=== PATIENT | female | born 1955 | race Caucasian/White ===

== ENCOUNTER 2019-06-06 05:23 | Inpatient (IN) ==
--- NOTE | 2019-05-31 18:07 | EKG Report ---
Test Performed on : 05/31/2019 5:58:58 PM Test Reason : PAT Blood Pressure : / mmHG Vent. Rate : 076 BPM Atrial Rate : 076 BPM P-R Int : 112 ms QRS Dur : 106 ms QT Int : 378 ms P-R-T Axes : 028 -30 003 degrees QTc Int : 425 ms Sinus rhythm. with marked sinus arrhythmia. Left axis deviation Incomplete right bundle branch block Abnormal ECG When compared with ECG of 17-DEC-2018 21:25, No significant change was found Confirmed by Uzma Ashby MD ([id number]) on 06/01/2019 1:00:20 PM
[2019-05-31 18:25] LABS: URINE SOURCE CLEAN CATCH
[2019-05-31 18:31] LABS: BILIRUBIN URINE NEGATIVE (NEGATIVE); BLOOD URINE NEGATIVE (NEGATIVE); COLOR YELLOW; GLUCOSE URINE NEGATIVE (NEGATIVE); KETONE URINE NEGATIVE (NEGATIVE); LEUKOCYTES URINE NEGATIVE (NEGATIVE); NITRITE URINE NEGATIVE (NEGATIVE); PH URINE 6.5; PROTEIN URINE TRACE mg/dL (NEGATIVE); SP GRAVITY URINE 1.022; TURBIDITY URINE HAZY (CLEAR); UROBILINOGEN URINE NORMAL (NORMAL)
[2019-05-31 18:32] LABS: BASO# 0.01 X1000 (0.0-0.2); BASO% 0.2 % (0.0-0.8); EOS# 0.16 X1000 (0.0-0.7); EOS% 2.6 % (0.0-10.0); HEMATOCRIT 37.6 % (37.0-47.0); HEMOGLOBIN 11.8 g/dL (12.0-16.0); LYMPH# 1.51 X1000 (1.2-3.4); LYMPH% 24.8 % (20.5-51.1); MCH 26.6 PG (27-31); MCHC 31.4 g/dL (33-37); MCV 84.9 FL (81-99); MONO# 0.54 X1000 (0.11-0.59); MONO% 8.9 % (1.7-9.3); MPV 10.2 FL (7.4-10.4); NEUT# 3.86 X1000 (1.4-6.5); NEUT% 63.5 % (42.2-75.2); PLT 366 X1000 (130-400); RBC 4.43 XMIL (4.2-5.4); WBC 6.08 X1000 (4.8-10.8)
[2019-05-31 18:33] LABS: UR EPITHELIAL CELLS <10 /HPF (<10); URINE BACTERIA NEGATIVE /HPF; URINE RBC <10 /HPF (<10); URINE WBC <10 /HPF (<10)
[2019-05-31 18:38] LABS: INR 0.95; PROTIME 12.8 Seconds (11.0-16.0)
[2019-05-31 18:39] LABS: PTT 26.3 Seconds (22.3-41.8)
[2019-05-31 19:00] LABS: HEMOGLOBIN A1C 5.4 % (4.8-6.0)
[2019-05-31 19:01] LABS: AGAP 11; BUN 9 mg/dL (8-22); CHLORIDE 105 mmol/L (98-107); COSMO 283; CREATININE 0.6 mg/dL (0.5-0.9); ESTIMATED GFR > 60; GLUCOSE 118 mg/dL (70-104); POTASSIUM 4.1 mmol/L (3.5-5.1); SODIUM 142 mmol/L (136-145); TCO2 26 mmol/L (25-35)
[2019-06-06] MEDS ORDERED: PEPCID ONE (06:22)
[2019-06-06] MEDS ORDERED: COLACE ONE (06:22)
[2019-06-06] MEDS ORDERED: REGLAN ONE (06:22)
[2019-06-06] MEDS ORDERED: LYRICA ONE (06:22)
[2019-06-06] MEDS ORDERED: LR 1,000 ML ONE (06:23)
[2019-06-06] MEDS ORDERED: KEFZOL 1 GM/D5W 2 GM/100 ML IVPB ONE (06:23)
[2019-06-06] MEDS ORDERED: CELEBREX ONE (06:23)
[2019-06-06] MEDS ORDERED: DIPRIVAN 1% ONE ×3 (06:35→08:16)
[2019-06-06] MEDS ORDERED: MARCAINE 0.25% PF ONE (06:51)
[2019-06-06] MEDS ORDERED: CYKLOKAPRON 1,000 MG/NS 1,000 MG/100 ML IVPB ONE (06:51)
[2019-06-06] MEDS ORDERED: TORADOL ONE (06:51)
[2019-06-06] MEDS ORDERED: DURAMORPH ONE (06:51)
[2019-06-06] MEDS ORDERED: SODIUM CHLORIDE 0.9% ONE (06:51)
[2019-06-06] MEDS ORDERED: EXPAREL 1.3% ONE (06:52)
[2019-06-06] MEDS ORDERED: NEOSPORIN G.U. IRRIGANT ONE (06:52)
[2019-06-06] MEDS ORDERED: FENTANYL ONE (07:20)
[2019-06-06] MEDS ORDERED: DECADRON ONE (07:52)
[2019-06-06] MEDS ORDERED: NEO-SYNEPHRINE ONE ×3 (07:52→08:11)
[2019-06-06] MEDS ORDERED: OFIRMEV 1000 MG/ISOTONIC SOLN 1,000 MG/100 ML BOTTLE ONE (07:52)
[2019-06-06] MEDS ORDERED: ZOFRAN ONE (07:52)
[2019-06-06] MEDS ORDERED: SODIUM CHLORIDE 0.9% 20 ML ONE (07:54)
[2019-06-06] MEDS ORDERED: ALBUMIN 25% ONE (08:43)
[2019-06-06 08:45] LABS: URINE SOURCE CATH
[2019-06-06 08:52] LABS: BILIRUBIN URINE NEGATIVE (NEGATIVE); BLOOD URINE NEGATIVE (NEGATIVE); COLOR YELLOW; GLUCOSE URINE NEGATIVE (NEGATIVE); KETONE URINE NEGATIVE (NEGATIVE); LEUKOCYTES URINE NEGATIVE (NEGATIVE); NITRITE URINE NEGATIVE (NEGATIVE); PROTEIN URINE NEGATIVE (NEGATIVE); SP GRAVITY URINE 1.013; TURBIDITY URINE HAZY (CLEAR); UR EPITHELIAL CELLS <10 /HPF (<10); URINE BACTERIA NEGATIVE /HPF; URINE RBC <10 /HPF (<10); URINE WBC <10 /HPF (<10); UROBILINOGEN URINE NORMAL (NORMAL)
[2019-06-06] MEDS ORDERED: NS 1,000 ML ONE (09:19)
[2019-06-06] MEDS ORDERED: DEMEROL ONE (09:26)
--- NOTE | 2019-06-06 09:29 | OPERATIVE NOTE ---
PROCEDURE DATE: 06/06/2019 PREOPERATIVE DIAGNOSIS: Degenerative joint disease, left hip. POSTOPERATIVE DIAGNOSIS: Degenerative joint disease, left hip. PROCEDURE: Left anterior hip replacement. SURGEON: Angela Yee MD. FIELD TRAINING AGENT: DIONISIO Allen. Mr. Crow was necessary for proper retraction, manipulation, and exposure of the leg during the case. ANESTHESIA: Spinal. COMPLICATION: None. PROCEDURE IN DETAIL: This 63-year-old female presents for a left anterior hip replacement. Risks, benefits, and no guarantees were discussed and she is willing to proceed. She was taken to the operating room and satisfactory anesthesia obtained. The left hip was prepped and draped in usual sterile fashion. A time-out was taken to confirm operative site, procedure, and patient. After prep and drape, an anterior approach to the left hip was undertaken with an incision starting 1 cm distal and lateral to the anterosuperior iliac spine. This was carried 10 cm. Dissection was carried down through the subcutaneous fat to the fascia of the tensor fascia jordan. This was split in line with the incision and blunt dissection along the inner membrane of the tensor undertaken down to the anterior hip capsule. Cobra retractors were placed over the superior and inferior aspect of the femoral neck and a capsulotomy incision made. The C-arm was used to tim the AP pelvis prior to osteotomy of the femoral neck for leg length determination. Slight shortening of the left leg was noted preoperatively. Femoral neck osteotomy was made roughly 8 mm above the lesser trochanter and the femoral head removed. A small Cobra retractor was placed carefully directly on the anterior acetabular bone to protect the femoral nerve and neurovascular structures. This was placed under direct palpation on to bone to avoid any injury. Sequential reaming of the acetabulum was undertaken up to a 51 reamer. A [employer] coated 52 outer diameter cup was then impacted in the acetabulum in roughly 45 degrees of abduction and 15 degrees of anteversion. Secure press-fit fixation was achieved. The 25 length screw was placed in the cup for additional security, followed by a 36 mm inner diameter 0 degree polyethylene bearing. The bearing liner interface and liner bone interface was checked and noted to be stable after impaction. Next, traction was released off the leg and the hip extended and externally rotated to facilitate broaching of the proximal femur. Using the [employer] broach system, the proximal femur was broached up to a size 4 stem. A high offset collar with a 1.5 neck length revealed good denominational of leg length and stability. The trial stem was removed and a high offset size 4 collared femoral stem impacted into the proximal femur with secure axial and rotational stability. A 36 mm ceramic head with a 1.5 neck length was impacted onto this and the hip reduced. C-arm was used to verify accurate component position as well as fixation. The leg was extended to the floor and externally rotated 80 degrees without any anterior instability. The hip was flexed and internally rotated with no posterior instability. The joint capsule was injected with Exparel for pain management. A Hemovac drain was placed. The arthrotomy and implant was thoroughly irrigated with irrigant. It was then closed over the drain with a running V-Loc suture in the fascia, 2-0 Vicryl in the subcutaneous and skin vinod on the skin edges. Sterile dressings completed the closure, and the patient was recovered from anesthesia and transferred to the recovery room in stable condition. No intraoperative complications were noted. Instrument count and sponge count was correct at the time of closure. cc: Mark Yee MD [facility]
[2019-06-06] MEDS ORDERED: MORPHINE IV PRN ×2 (10:30)
[2019-06-06] MEDS ORDERED: OXY IR PO PRN (10:30)
[2019-06-06] MEDS ORDERED: ZOFRAN IV PRN (10:30)
[2019-06-06] MEDS ORDERED: ZOFRAN ODT PO PRN (10:30)
[2019-06-06] MEDS: ULTRAM PO SCH ×3 (11:04→22:13)
--- NOTE | 2019-06-06 12:11 | ORTHOPAEDICS PROGRESS NOTE ---
DATE: 06/06/2019 Ms. Walker is seen status post left hip replacement. At the present time, she is stable. She is awake and alert without any discomfort. Bandage is clean and dry. There are no motor or sensory deficits distally, with good flexion and extension of the ankle, as well as good quadriceps and femoral nerve function. She is stable currently. We will plan on mobilizing her and discharging home when she is mobilizing with home therapy or inpatient rehab. cc: Mark Yee MD
[2019-06-06] MEDS ORDERED: CYKLOKAPRON 1,000 MG in NS 100 ML IV ONE (13:45)
[2019-06-06] MEDS: OXY IR PO PRN ×3 (14:51→22:18)
[2019-06-06] MEDS: KEFZOL 1 GM/D5W 1 GM/50 ML IVPB IV SCH ×2 (15:25→22:15)
[2019-06-06] MEDS: TYLENOL PO SCH ×2 (15:29→22:13)
[2019-06-06] MEDS: NS 1,000 ML IV SCH (19:20)
[2019-06-06] MEDS: CELEBREX PO SCH (22:13)
[2019-06-06] MEDS: COLACE PO SCH (22:13)
[2019-06-07] MEDS: MORPHINE IV PRN (03:19)
[2019-06-07 05:56] LABS: HEMATOCRIT 24.5 % (37.0-47.0); HEMOGLOBIN 7.4 g/dL (12.0-16.0)
[2019-06-07 06:04] LABS: AGAP 5; BUN 9 mg/dL (8-22); CALCIUM 8.7 mg/dL (8.8-10.2); CHLORIDE 104 mmol/L (98-107); COSMO 283; CREATININE 0.5 mg/dL (0.5-0.9); ESTIMATED GFR > 60; GLUCOSE 162 mg/dL (70-104); SODIUM 141 mmol/L (136-145); TCO2 32 mmol/L (25-35)
[2019-06-07] MEDS: TYLENOL PO SCH ×3 (07:44→22:05)
[2019-06-07] MEDS: ULTRAM PO SCH ×3 (07:44→22:03)
[2019-06-07] MEDS ORDERED: DUONEB (A & A) INH PRN ×2 (08:10→08:56)
--- NOTE | 2019-06-07 08:13 | ORTHOPAEDICS PROGRESS NOTE ---
DATE: 06/07/2019 SUBJECTIVE: Ms. Walker is seen status post hip replacement. At the present time, she is afebrile with stable vital signs. She has had some difficulty with her COPD and a flare-up of this. PLAN: We have asked the Hospitalist to see her for medical management. She is a currently discharge issue since she only has Medicaid and is not qualified for home therapy or inpatient rehab. We will need to continue hospitalization today and get her COPD under control and consider discharge for outpatient therapy possibly on Wednesday. cc: MD Brian Wood MD
--- NOTE | 2019-06-07 09:18 | CONSULTATION ---
DATE OF CONSULTATION: 06/07/2019 PRIMARY CARE PHYSICIAN: Jaun uHrley MD. REASON FOR ADMISSION: Total hip replacement. HISTORY OF PRESENT ILLNESS: This is a 63-year-old female who was admitted for repair of a left femur fracture. We are now being consulted for geriatric care. PAST MEDICAL HISTORY: Includes : 1. COPD. 2. Hypertension. 3. Chronic anxiety. 4. Situational depression. 5. Chronic pain. PAST SURGICAL HISTORY: Includes left post hip replacement. FAMILY HISTORY: Noncontributory. Patient states she is adopted. SOCIAL HISTORY: Patient states that she quit smoking approximately 12 to 13 years ago and denies any alcohol or illicit drug use. ALLERGIES: No known drug allergies. REVIEW OF SYSTEMS: General: Patient denies fevers, chills, or symptoms. HEENT: Patient denies any headaches, vision changes at this time. Neck: Denies neck pain. Cardiovascular: Denies chest pain, shortness of breath. Respiratory: Denies cough or any expectorating sputum or increasing SOB Gastrointestinal: denies nausea, vomiting at this time. Genitourinary: No frequency, burning, or urgency noted. Musculoskeletal: Does have some left-sided pain related to recent surgery. Neurologic: Denies dizziness, tremors. Psychiatric: Positive for anxiety. Skin: Denies rash. LABORATORY DATA AND DIAGNOSTICS: Hemoglobin and hematocrit is 7.4 and 24.5. Sodium is 141 with potassium 4.0, chloride is 104, BUN 9, and creatinine of 0.5. Glucose is 162. UA is negative for any nitrites or leukocytes. PHYSICAL EXAMINATION: Vital signs: Temperature 98 degrees, pulse of 90, respiratory 14, blood pressure 96/52, 99% nasal cannula 2 L. PHYSICAL EXAMINATION: General: This is a well-appearing 63-year-old female. HEENT: Normocephalic. PERRLA. Mucous membranes are moist. Neck: No lymphadenopathy. Trachea is midline. No JVD noted. Cardiovascular: No murmurs, gallops, rubs. Rate and rhythm regular. Respiratory: Lung sounds clear, nonlabored. Genitourinary: Young in place with clear yellow urine. Gastrointestinal: Abdomen is soft and nontender. Bowel sounds present x4 quadrants. Palpable times all 4 quadrants. Neurologic: Cranial nerves 2-12 grossly intact. Musculoskeletal: 5/5 on the upper extremities and right lower leg. Left lower leg 3/5. post hip replacement with dressing dry and intact to left hip. pt hemovac in place and charged. B/L feet warm and dry with strong pedal pulses noted. ASSESSMENT: 1. COPD 2. Anemia 3. Left hip replacement 4. chronic pain PLAN: Will be consulted for geriatric care. DuoNeb treatments for COPD excaberation and obtain CXR. Obtain H and H at noon for evaluation anemia. Further recommendations will be pending per clinical course and response to therapy. Dictated by DIONISIO Chao for Brian Goff MD cc: Brian Goff MD [facility]
[2019-06-07] MEDS: PERIDEX MT SCH ×2 (10:28→22:04)
[2019-06-07] MEDS: PEPCID PO SCH (10:28)
[2019-06-07] MEDS: CELEBREX PO SCH ×2 (10:29→22:03)
[2019-06-07] MEDS: ASPIRIN PO SCH (10:29)
[2019-06-07] MEDS: COLACE PO SCH ×2 (10:29→22:03)
[2019-06-07] MEDS: DUONEB (A & A) INH SCH ×4 (11:16→23:46)
--- NOTE | 2019-06-07 11:49 | Diag Imaging Result Doc PS360 ---
CHEST-PORTABLE - 06/07/2019 INDICATION: copd COMPARISON: 12/17/2018 FINDINGS: The lungs are normally expanded and clear. Heart size and mediastinal contours are normal. No pneumothorax or pleural effusion. IMPRESSION: Negative exam. Electronically signed by Giovanni Del Real 06/07/2019 11:47 AM
[2019-06-07 12:13] LABS: HEMATOCRIT 25.3 % (37.0-47.0); HEMOGLOBIN 7.8 g/dL (12.0-16.0)
[2019-06-07] MEDS: NS 1,000 ML IV SCH (13:49)
[2019-06-07] MEDS: OXY IR PO PRN ×2 (14:54→22:09)
[2019-06-07] MEDS ORDERED: ZANAFLEX PO PRN (17:21)
[2019-06-07] MEDS ORDERED: BUSPIRONE HCL PO PRN (17:21)
[2019-06-07] MEDS ORDERED: [UNRECOGNIZED DRUG - OTHER] PO SCH (21:00)
[2019-06-07] MEDS: DESYREL PO SCH (22:09)
[2019-06-07] MEDS: REGLAN PO SCH (22:11)
[2019-06-08] MEDS: MORPHINE IV PRN (00:51)
[2019-06-08] MEDS: NS 1,000 ML IV SCH ×2 (03:22→18:37)
[2019-06-08] MEDS: TYLENOL PO SCH ×3 (03:23→22:44)
[2019-06-08] MEDS: ULTRAM PO SCH ×3 (03:24→23:03)
[2019-06-08] MEDS: DUONEB (A & A) INH SCH ×6 (03:45→23:47)
[2019-06-08] MEDS: PRILOSEC PO SCH ×2 (05:44→06:20)
[2019-06-08 06:04] LABS: BASO# 0.01 X1000 (0.0-0.2); BASO% 0.2 % (0.0-0.8); EOS# 0.54 X1000 (0.0-0.7); EOS% 8.6 % (0.0-10.0); HEMOGLOBIN 6.6 g/dL (12.0-16.0); LYMPH# 1.65 X1000 (1.2-3.4); LYMPH% 26.2 % (20.5-51.1); MCH 26.5 PG (27-31); MCV 88.4 FL (81-99); MONO# 0.55 X1000 (0.11-0.59); MONO% 8.7 % (1.7-9.3); MPV 11.1 FL (7.4-10.4); NEUT# 3.54 X1000 (1.4-6.5); NEUT% 56.3 % (42.2-75.2); PLT 206 X1000 (130-400); RBC 2.49 XMIL (4.2-5.4); RDW 18.9 % (11.5-14.5); WBC 6.29 X1000 (4.8-10.8)
[2019-06-08 06:19] LABS: AGAP 9; BUN 9 mg/dL (8-22); CALCIUM 7.4 mg/dL (8.8-10.2); CHLORIDE 105 mmol/L (98-107); COSMO 286; CREATININE 0.5 mg/dL (0.5-0.9); ESTIMATED GFR > 60; GLUCOSE 142 mg/dL (70-104); POTASSIUM 3.8 mmol/L (3.5-5.1); SODIUM 143 mmol/L (136-145); TCO2 29 mmol/L (25-35)
[2019-06-08] MEDS ORDERED: BENADRYL CREAM TOP PRN ×2 (08:12→14:14)
[2019-06-08] MEDS: ASPIRIN PO SCH (11:50)
[2019-06-08] MEDS: PEPCID PO SCH (11:50)
[2019-06-08] MEDS: CELEBREX PO SCH ×2 (11:50→22:45)
[2019-06-08] MEDS: PERIDEX MT SCH ×2 (11:51→22:46)
[2019-06-08] MEDS: COLACE PO SCH ×2 (11:51→22:44)
--- NOTE | 2019-06-08 16:06 | CONSULTATION ---
DATE OF CONSULTATION: 06/07/2019 REASON FOR CONSULTATION: We were consulted for medical evaluation and care. HISTORY OF PRESENT ILLNESS: She is a 63-year-old female, not technically elderly, but she is here for elective left hip replacement and seen postoperatively. She is doing very well, although her hemoglobin and hematocrit has dropped fairly profoundly postoperatively. I do not appreciate she has any bronchospasm at this time. We will monitor her hemoglobin and hematocrit closely. Her exam is otherwise unremarkable. PLAN: We will repeat her labs tomorrow and follow along with you, and check anemia base labs. She may require transfusion. Appreciate consultation. This is a patient of DR. Jaun Hurley. [id number] encounter note with Francoise Pillai. cc: Brian Goff MD
--- NOTE | 2019-06-08 16:08 | ORTHOPAEDICS PROGRESS NOTE ---
DATE: 06/08/2019 SUBJECTIVE DATA: Ms. Walker is seen for her postop left anterior hip replacement. She states she has been up with physical therapy and walking without much difficulty. She states her pain is a 4/10 at this time. She reports that she has been more tired today than she has been. She states the nurses have given her 1 unit of blood already. OBJECTIVE DATA: Extremities: There is good sensation to the left lower extremity. There are good pedal pulses. There is good capillary refill in the toes. The patient can flex the knee without difficulty. The bandages are clean and dry at this time. There is negative Homans sign. The patient can dorsi and plantar flex the foot. Vital Signs: Temperature 98.7 degrees, pulse rate 98, respiratory rate 18, blood pressure 94/46, oxygen saturation 93% on room air. CURRENT LABS: Hemoglobin and hematocrit are 6.6 and 22.0. Glucose is 142. ASSESSMENT: 1. Degenerative joint disease, left hip, with left anterior hip replacement. 2. Anemia. PLAN: Plan on monitoring Ms. Walker overnight in the hospital. She can continue physical therapy. She will get another unit of blood. They are going to check her hemoglobin and hematocrit after the second unit of blood. She will likely be discharged home tomorrow. I have talked to the patient about needing to set up home therapy or outpatient therapy right away. She is going to make a decision to either go home to [place], [place] or stay here and have therapy come to her home here. We will check back on her in the morning and see what she is wanting to do. Dictated by DIONISIO Allen for Mark Yee MD cc: DIONISIO Allen MD Allen J. Schmidt, MD
--- NOTE | 2019-06-08 17:41 | PROGRESS NOTE ---
DATE: 06/08/2019 SUBJECTIVE: Ms. Walker noted her hemoglobin was low, so plan to give her 2 units of packed red blood cells. She is status post left anterior hip replacement. She has been tolerating physical therapy without difficulty and reports that her pain is down to 4/10. OBJECTIVE: General: Comfortable. Vital signs: Afebrile, temperature 98.1 degrees, pulse 80, respirations 18, blood pressure 110/70. HEENT: Pupils are equal and round. Lungs: Clear in all lung luong. Cardiovascular: Regular rhythm and rate without murmur or S3. Abdomen: Soft. Skin: Warm and dry. Urine output was 800 mL. ASSESSMENT AND PLAN: 1. Degenerative joint disease, left hip, left anterior hip replacement. 2. Acute blood loss anemia. Hemoglobin down to 6.6, hematocrit 22. I will give her 2 units of packed red blood cells. Note that her chest x-ray from yesterday was negative. REVIEW OF ORDERS: I do not see any change. She is on trazodone 100 mg at bedtime, oxycodone IR 10 mg q.3 hours p.r.n., normal saline at 75 mL an hour, aspirin 325 mg a day, Celebrex 200 mg p.o. b.i.d., Colace 100 mg b.i.d., Pepcid 20 mg a day. Getting morphine for severe pain. Tramadol 100 mg p.o. q.6 hours. I think she takes omega-3 fatty acids 1 mg daily. cc: Alonzo Negrete MD
[2019-06-08] MEDS: REGLAN PO SCH (22:44)
[2019-06-08] MEDS: OXY IR PO PRN (22:44)
[2019-06-08] MEDS: DESYREL PO SCH (22:44)
[2019-06-09] MEDS: DUONEB (A & A) INH SCH ×3 (03:05→11:56)
[2019-06-09] MEDS: ULTRAM PO SCH ×2 (05:32→09:47)
[2019-06-09] MEDS: TYLENOL PO SCH ×2 (05:32→09:45)
[2019-06-09 05:56] LABS: HEMATOCRIT 29.2 % (37.0-47.0); HEMOGLOBIN 9.2 g/dL (12.0-16.0)
[2019-06-09] MEDS: PRILOSEC PO SCH (06:44)
[2019-06-09] MEDS ORDERED: FISH OIL CONCENTRATE PO SCH (09:00)
[2019-06-09] MEDS: CELEBREX PO SCH (09:44)
[2019-06-09] MEDS: ASPIRIN PO SCH (09:44)
[2019-06-09] MEDS: COLACE PO SCH (09:45)
[2019-06-09] MEDS: PERIDEX MT SCH (09:45)
[2019-06-09] MEDS: PEPCID PO SCH (09:45)
[2019-06-09] MEDS: NS 1,000 ML IV SCH (09:46)
[2019-06-09 13:14] VITALS: BP 110/72
--- NOTE | 2019-06-09 13:40 | DISCHARGE SUMMARY ---
ADMISSION DATE: 06/06/2019 DISCHARGE DATE: 06/09/2019 ADMITTING DIAGNOSIS: Degenerative joint disease of the left hip. DISCHARGE DIAGNOSIS: Degenerative joint disease, left hip, and anemia. DISCHARGE SUMMARY: This is a 63-year-old female who came into the hospital on 06/06/2019 for a left total hip arthroplasty. Surgery went well and patient was transferred to the postop recovery unit. She did well there and was then transferred to the surgical floor. She did experience some episodes of anemia where she had a blood transfusion with 2 units of packed red blood cells. She did well with therapy and ambulated with a walker. Her bandages remained clean, dry, and intact during her hospital stay. She did develop some difficulty breathing while she was here for a moment but all that has since resolved. At this time, her current hemoglobin and hematocrit are 9.2 and 29.2. VITAL SIGNS: Temperature 98.8 degrees, pulse rate 104, respiratory rate 20, blood pressure 113/81, oxygen saturation 95% on room air at this time. The patient was felt ready to be discharged at this time. We have written her prescriptions for physical therapy outpatient as well as aspirin 325 b.i.d. for DVT prophylaxis. We also given her [place] 10 for pain. We have given her Bactrim DS b.i.d. for 10 days for infection prevention. ALLERGIES: Patient has no known drug allergies. PAST MEDICAL HISTORY: Includes anemia and anxiety, COPD, depression, osteoarthritis, osteoporosis, and peripheral neuropathy. She also has history of sleep apnea. FOLLOWUP: She is to follow up in office in roughly 10 days, get her vinod removed from her left hip. We will check back on her then. DISPOSITION: She is going to be discharged home at this time to set up with outpatient therapy. Dictated by DIONISIO Allen for Mark Yee MD cc: DIONISIO Allen MD Allen J. Schmidt, MD
== END 2019-06-09 13:21 | disposition home or self-care (01) | DRG 470 ==
LOC: SURHOLD 05:23 → 4N 07:23
PROVIDERS: ADMIT Emergency Medicine; ATTEND Orthopaedic Surgery Adult Reconstructive Orthopaedic Surgery